=== PATIENT | male | born 1925 | race Caucasian/White ===

== ENCOUNTER 2016-06-16 08:47 | Emergency (ER) | payer MEDICARE ==
[~2016-06-16] VITALS: Ht 172.7 cm; Wt 70.9 kg
[~2016-06-16 08:47] MED LIST: MECL25 PO; PROS5TAB2 PO; ZOFR4TAB3 SL
[2016-06-16 08:53] VITALS: BP 131/72; PULSE 54; RESP 16; TEMP 97.4; O2SAT 99
[2016-06-16 09:10] VITALS: BP 140/65; PULSE 52; RESP 18; O2SAT 100
[2016-06-16] MEDS ORDERED: ASPI81TA81 PO (09:19)
[2016-06-16] MEDS ORDERED: FINA5TAB2 PO (09:19)
[2016-06-16] MEDS ORDERED: TAMS5CAP PO (09:19)
[2016-06-16 09:35] VITALS: O2SAT 99
[2016-06-16] MEDS ORDERED: ONDANSETRON HCL 4 MG/2 ML VIAL IV PUSH ONE (09:45)
[2016-06-16] MEDS ORDERED: SODIUM CHLOR 0.9% 1000 ML INJ 1,000 ML IV SCH (09:45)
[2016-06-16] MEDS ORDERED: MECLIZINE HCL 25 MG TAB PO ONE (09:45)
--- NOTE | 2016-06-16 09:49 | PD ---
HPI Chief Complaint: Dizziness Time Seen by Provider: 09:33 Travel History International Travel<30 days: No Contact w/Intl Traveler<30days: No Traveled to known affect area: No History of Present Illness HPI 89-year-old male complains of dizziness and nausea vomiting. Patient states that he was bending over picking up a newspaper and got up and started having severe dizziness. Patient states that he had nausea vomiting with the dizziness. Patient denies any headache. Patient denies any visual change. Patient denies any neck pain. Patient denies any chest pain or shortness of breath. Patient denies abdominal pain. Patient denies any focal weakness or numbness of the extremity. Patient has history of vertigo in the past. Patient has been eating well. Patient has history of CLL and has been seen by hematology oncologist in [place]. [facility] Past Medical History Arthritis: Yes Medical other: Yes (PROSTRATE ISSUES) Influenza Vaccination: Yes Past Surgical History Surgical History: No Previous Surgery Social History Alcohol Use: No Tobacco Use: No Substance Use: No Allergies-Medications (Allergen,Severity, Reaction): Coded Allergies: No Known Allergies (Unverified , 06/16/16) Reported Meds & Prescriptions Reported Meds & Active Scripts Active Reported Aspir-81 (Aspirin) 81 Mg Tabdr 1 Tab PO EVERY OTHER DAY Finasteride 5 Mg Tab 5 Mg PO DAILY Do not crush. Flomax (Tamsulosin HCl) 0.4 Mg Cap 0.4 Mg PO HS Review of Systems General / Constitutional: No: Fever Eyes: No: Visual changes HENT: Positive: Lightheadedness, No: Headaches Cardiovascular: No: Chest Pain or Discomfort Respiratory: No: Shortness of Breath Gastrointestinal: No: Abdominal Pain Genitourinary: No: Dysuria Musculoskeletal: No: Pain Skin: No Rash Neurologic: No: Weakness Psychiatric: No: Depression Endocrine: No: Polydipsia Hematologic/Lymphatic: No: Easy Bruising Physical Exam Narrative GENERAL: Well-nourished, well-developed patient. SKIN: Warm and dry. HEAD: Normocephalic. EYES: No scleral icterus. No injection or drainage. TM: Clear. NECK: Supple, trachea midline. No JVD or lymphadenopathy. CARDIOVASCULAR: Regular rate and rhythm without murmurs, gallops, or rubs. RESPIRATORY: Breath sounds equal bilaterally. No accessory muscle use. GASTROINTESTINAL: Abdomen soft, non-tender, nondistended. MUSCULOSKELETAL: No cyanosis, or edema. BACK: Nontender without obvious deformity. No CVA tenderness. Neurologic exam normal. Data Data Last Documented VS Vital Signs Date Time Temp Pulse Resp B/P Pulse Ox O2 Delivery O2 Flow Rate FiO2 06/16/16 11:00 57 18 128/64 99 Room Air 06/16/16 08:53 97.4 Orders Electrocardiogram (06/16/16 09:40) Complete Blood Count With Diff (06/16/16 09:40) Comprehensive Metabolic Panel (06/16/16 09:40) Prothrombin Time / Inr (Pt) (06/16/16 09:40) Act Partial Throm Time (Ptt) (06/16/16 09:40) Urinalysis - C+S If Indicated (06/16/16 09:40) Ct Brain W/O Iv Contrast(Rout) (06/16/16 09:40) Iv Access Insert/Monitor (06/16/16 09:40) Ecg Monitoring (06/16/16 09:40) Oximetry (06/16/16 09:40) Sodium Chlor 0.9% 1000 Ml Inj (Ns 1000 M (06/16/16 09:45) Meclizine (Antivert) (06/16/16 09:45) Ondansetron Inj (Zofran Inj) (06/16/16 09:45) Labs Laboratory Tests Test 06/16/16 09:35 White Blood Count 19.3 TH/MM3 Red Blood Count 3.22 MIL/MM3 Hemoglobin 10.7 GM/DL Hematocrit 32.3 % Mean Corpuscular Volume 100.3 FL Mean Corpuscular Hemoglobin 33.3 PG Mean Corpuscular Hemoglobin 33.2 % Concent Red Cell Distribution Width 14.2 % Platelet Count 107 TH/MM3 Mean Platelet Volume 6.2 FL Neutrophils (%) (Auto) % Lymphocytes (%) (Auto) % Monocytes (%) (Auto) % Eosinophils (%) (Auto) % Basophils (%) (Auto) % Neutrophils # (Auto) TH/MM3 Lymphocytes # (Auto) TH/MM3 Monocytes # (Auto) TH/MM3 Eosinophils # (Auto) TH/MM3 Basophils # (Auto) TH/MM3 CBC Comment AUTO DIFF Differential Total Cells 100 Counted Neutrophils % (Manual) 13 % Lymphocytes % 85 % Monocytes % 2 % Neutrophils # (Manual) 2.5 TH/MM3 Differential Comment FINAL DIFF MANUAL Platelet Estimate LOW Platelet Morphology Comment NORMAL Ovalocytes 1+ Prothrombin Time 10.5 SEC Prothromb Time International 1.0 RATIO Ratio Activated Partial 21.4 SEC Thromboplast Time Sodium Level 141 MEQ/L Potassium Level 4.4 MEQ/L Chloride Level 105 MEQ/L Carbon Dioxide Level 26.4 MEQ/L Anion Gap 10 MEQ/L Blood Urea Nitrogen 22 MG/DL Creatinine 0.82 MG/DL Estimat Glomerular Filtration 88 ML/MIN Rate Random Glucose 133 MG/DL Calcium Level 8.7 MG/DL Total Bilirubin 0.5 MG/DL Aspartate Amino Transf 15 U/L (AST/SGOT) Alanine Aminotransferase 17 U/L (ALT/SGPT) Alkaline Phosphatase 56 U/L Total Protein 6.3 GM/DL Albumin 3.6 GM/DL MDM Medical Decision Making Medical Screen Exam Complete: Yes Emergency Medical Condition: Yes Interpretation(s) Last Impressions Head CT 06/16/16 0940 Signed Impressions: Service Date/Time: Thursday, June 16, 2016 10:03 - CONCLUSION: Negative for acute process. John Douglas MD FACR 11:17 AM. CBC WBC 19.3. Hemoglobin 10.7 hematocrit 32.3. MCV 100.3. Platelet 107. 13 neutrophil. 85 lymphocytes. BUN 22. Differential Diagnosis Differential diagnosis including acute vertigo, electrolyte abnormality, dehydration, arrhythmia, TIA, CVA. Narrative Course 89-year-old male with dizziness and nausea vomiting. Symptoms started this morning. Normal saline solution 100 cc an hour. Meclizine 25 mg by mouth. Zofran 4 mg IV. Diagnosis Primary Impression: Acute onset of severe vertigo Additional Impression: Chronic lymphocytic leukemia Patient Instructions: General Instructions Additional Instructions: Meclizine and Zofran as needed. Follow-up with personal physician and tint layer oncologist. Return if worse. Med/Other Pt SpecificInfo: Prescription(s) given Scripts Ondansetron Odt (Zofran Odt)4 Mg Tab4 Mg SL Q6HR PRN (Nausea/Vomiting) #10 TAB Ref 0 Prov:Elan Torrez MD 06/16/16 Meclizine 25 Mg Tab25 Mg PO TID PRN (VERTIGO) #21 TAB Ref 0 Prov:Elan Torrez MD 1/4/17 Disposition: 01 DISCHARGE HOME Condition: Stable Elan Torrez MD Jun 16, 2016 09:49
[2016-06-16 09:58] LABS: HEMATOCRIT 32.3 % (39.0-51.0); MEAN CELL VOLUME 100.3 FL (80.0-100.0); MEAN CORPUSCULAR HEMOGLOBIN 33.3 PG (27.0-34.0); MEAN CORPUSCULAR HGB CONC 33.2 % (32.0-36.0); PLATELET COUNT 107 TH/MM3 (150-450); RED BLOOD COUNT 3.22 MIL/MM3 (4.50-5.90); RED CELL DISTRIBUTION WIDTH 14.2 % (11.6-17.2); WHITE BLOOD COUNT 19.3 TH/MM3 (4.0-11.0)
[2016-06-16 09:59] LABS: HEMO FLAGS AUTO DIFF
--- NOTE | 2016-06-16 10:12 | RADHPO ---
EXAM DATE/TIME: 06/16/2016 10:03 [facility] COMPARISON: No previous studies available for comparison. INDICATIONS : Dizziness. RADIATION DOSE: 59.26 CTDIvol (mGy) MEDICAL HISTORY : None SURGICAL HISTORY : None. ENCOUNTER: Initial ACUITY: 1 day PAIN SCALE: 0/10 LOCATION: cranial TECHNIQUE: Multiple contiguous axial images were obtained of the head. Using automated exposure control and adjustment of the mA and/or kV according to patient size, radiation dose was kept as low as reasonably achievable to obtain optimal diagnostic quality images. FINDINGS: CEREBRUM: The ventricles are normal for age. No evidence of midline shift, mass lesion, hemorrha ge or acute infarction. No extra-axial fluid collections are seen. POSTERIOR FOSSA: The cerebellum and brainstem are intact. The 4th ventricle is midline. The cer ebellopontine angle is unremarkable. EXTRACRANIAL: The visualized portion of the orbits is intact. SKULL: The calvaria is intact. No evidence of skull fracture. CONCLUSION: Negative for acute process. John Douglas MD FACR on June 16, 2016 at 10:10 Board Certified Radiologist. This report was verified electronically.
[2016-06-16 10:13] LABS: APTT (PATIENT) 21.4 SEC (24.3-30.1); PROTHROMBIN TIME - PATIENT 10.5 SEC (9.8-11.6)
[2016-06-16 10:15] LABS: ANION GAP 10 MEQ/L (5-15); BICARBONATE 26.4 MEQ/L (21.0-32.0); CHLORIDE 105 MEQ/L (98-107); POTASSIUM 4.4 MEQ/L (3.5-5.1); SODIUM (NA) 141 MEQ/L (136-145)
[2016-06-16 10:18] LABS: AST (GOT) 15 U/L (15-37); GLOMERULAR FILTRATION RATE 88 ML/MIN (>89)
[2016-06-16 10:21] LABS: ALKALINE PHOSPHATASE 56 U/L (45-117)
[2016-06-16 10:24] LABS: NEUTROPHIL # MANUAL DIFF 2.5 TH/MM3 (1.8-7.7); OVALOCYTES 1+ (NORMAL); PLATELET ESTIMATE SMEAR LOW (NORMAL); PLATELET MORPHOLOGY NORMAL (NORMAL); POLYS (SEG NEUTROPHILS) 13 % (16-70); SCAN/DIFF FINAL DIFF MANUAL; WBC DIFF SAMPLE 100
[2016-06-16 10:31] LABS: ALT (GPT) 17 U/L (12-78)
[2016-06-16 10:32] LABS: BLOOD UREA NITROGEN 22 MG/DL (7-18)
[2016-06-16 10:39] LABS: TOTAL BILIRUBIN ADULT 0.5 MG/DL (0.2-1.0)
[2016-06-16 11:00] VITALS: BP 128/64; PULSE 57; RESP 18; O2SAT 99
[2016-06-16 11:46] VITALS: BP 116/61; PULSE 59; RESP 18; O2SAT 97
[2016-06-16] MEDS ORDERED: ZOFR4TAB3 SL (11:49)
[2016-06-16] MEDS ORDERED: MECL-62 PO (11:49)
--- NOTE | 2016-06-16 16:57 | EKG ---
Date Performed: 06/16/2016 Time Performed: 10:16:14 PTAGE: 89 years EKG: Sinus bradycardia Short MN interval Borderline ECG NO SIGNIFICANT CHANGE FROM PRIOR ELECTRO CARDIOGRAM. PREVIOUS TRACING : 08/07/2012 17.26 DOCTOR: Jose A Bolanos Interpretating Date/Time 06/16/2016 16:56:40
== END 2016-06-16 12:28 | disposition home or self-care (01) ==
LOC: PHED 08:47
DX: R42 Dizziness and giddiness (principal); C91.10 Chronic lymphocytic leukemia of B-cell type not having achieved remission; R00.1 Bradycardia, unspecified
CPT/HCPCS: 70450; 80053; 85007; 85027; 85610; 85730; 93005; 96361; 96374; 99284; J2405; J7030